=== PATIENT | female | born 1970 | race Caucasian/White ===

== ENCOUNTER 2018-07-11 14:27 | Inpatient (IN) ==
[2018-07-11] MEDS ORDERED: MAGNESIUM SULF RIDER 2 GM in PREMIX 1 EACH IV STA (14:52)
[2018-07-11] MEDS ORDERED: DILTIAZEM 50 MG/10 ML VIAL IV STA ×2 (14:52→15:28)
[2018-07-11] MEDS ORDERED: DILTIAZEM 25 MG/5 ML VIAL IV STA (14:54)
[2018-07-11] MEDS: dilTIAZem Drip 125 MG/125 ML PREMIX IV SCH ×2 (15:05→21:05)
[2018-07-11 15:14] LABS: Basophils % 0.2 % (0.0-0.8); Hemoglobin 12.8 GM/DL (12.0-16.0); Immature Granulocytes % 0.4 %; Immature Granulocytes Absolute 0.06 #; Lymphocytes # 2.6 10*3/uL (1.4-4.0); Lymphocytes % 17.7 % (21.3-54.2); Mean Corpuscular HGB Conc 32.8 GM/DL (32-36); Mean Corpuscular Hemoglobin 28 PG (27-34); Mean Corpuscular Volume 84.1 FL (87-102); Mean Platelet Volume 9.4 FL (9.6-12.0); Monocytes # 0.6 10*3/uL (0.11-0.8); Monocytes % 4.2 % (1.7-12.7); Neutrophils # 11.2 10*3/uL (1.4-7.4); Neutrophils % 77.5 % (38.7-73.9); Platelet Count 535 T/CUMM (130-400); Red Blood Count 4.64 MC/CUMM (3.8-5.5); Red Cell Distribution Width 14.6 % (9.3-17.3); White Blood Count 14.5 T/CUMM (4-12)
[2018-07-11 15:24] LABS: INR 0.9; PT Patient Result 9.9 SECS; Partial Thromboplastin Time 27.7 SECS (0-40)
[2018-07-11 15:37] LABS: Alanine Aminotransferase 20 U/L (13-56); Albumin 3.6 G/DL (3.4-5.0); Alkaline Phosphatase 141 U/L (45-117); Aspartate Amino Transferase 37 U/L (0-37); Bilirubin,Total < 0.39 MG/DL (0.2-1.0); Blood Urea Nitrogen 14 MG/DL (7-18); Calcium 9.2 MG/DL (8.5-10.1); Glucose 136 MG/DL (74-106); Osmolality,Calculated 272.1 MOS/KG (273-304); Sodium 135 MMOL/L (136-145); Thyroid Stimulating Hormone 0.945 uIU/ml (0.358-3.74); Total Protein 8.1 G/DL (6.4-8.3)
[2018-07-11] MEDS ORDERED: ZALEPLON 5 MG CAPSULE PO PRN (15:38)
[2018-07-11] MEDS ORDERED: DOCUSATE SODIUM 100 MG CAPSULE PO PRN (15:38)
[2018-07-11] MEDS ORDERED: ACETAMINOPHEN 325 MG TABLET PO PRN (15:38)
[2018-07-11] MEDS ORDERED: ONDANSETRON 4 MG/2 ML VIAL IV PRN (15:38)
[2018-07-11] MEDS ORDERED: diphenhydrAMINE CAP 25 MG CAPSULE PO PRN (15:38)
[2018-07-11] MEDS ORDERED: guaiFENesin/DM ER 600-30 MG TABLET PO PRN (15:38)
[2018-07-11] MEDS ORDERED: BISACODYL 5 MG TABLET PO PRN (15:38)
[2018-07-11] MEDS ORDERED: MAGNESIUM SULF RIDER 2 GM in PREMIX 1 EACH IV PRN (15:38)
[2018-07-11] MEDS ORDERED: MAGNESIUM SULF RIDER 4 GM in PREMIX 1 EACH IV PRN (15:38)
[2018-07-11] MEDS ORDERED: PROMETHAZINE 25 MG TABLET PO PRN (15:38)
[2018-07-11 16:16] LABS: Apearance,Urine CLEAR (Clear); Barbiturates Screen,Urine Negative (Negative); Benzodiazepines Screen,Urine Negative (Negative); Bilirubin,Urine Negative (Negative); Blood, Urine Small mg/dL (Negative); Cannabinoid Screen,Urine Negative (Negative); Glucose,Urine (UA) Negative (Negative); Ketones,Urine Negative (Negative); Mucus,Urine Occasional /LPF (Occasional); Nitrite,Urine Negative (Negative); Opiate Screen,Urine Negative (Negative); Phencyclidine Screen,Urine Negative (Negative); Protein,Urine Negative; RBC,Urine 1 /HPF (0-4); Squamous Epithelial Cell,Urine Occasional /HPF (0-10); Urine Color Yellow (Yellow); Urine Specific Gravity 1.009 (1.001-1.035); Urine Urobilinogen < 2.0 EU/DL (0.2-1.0); WBC,Urine <1 /HPF (0-6)
[2018-07-11] MEDS: SODIUM CHLORIDE 0.9% 1,000 ML IV SCH (17:08)
[2018-07-11] MEDS ORDERED: SODIUM CHLORIDE 0.9% 500 ML IV STA (17:20)
[2018-07-11] MEDS ORDERED: METOPROLOL TARTRATE 50 MG TABLET PO ONE (17:47)
[2018-07-11] MEDS ORDERED: LOSARTAN 25 MG TABLET PO SCH (21:00)
[2018-07-11] MEDS: ENOXAPARIN 100 MG/ML SYRINGE SUBCUT SCH (22:20)
[2018-07-11] MEDS: POTASSIUM CHLORIDE 20 MEQ TABLET PO PRN (22:20)
[2018-07-11 23:28] LABS: Apearance,Urine Slightly Hazy (Clear); Bilirubin,Urine Negative (Negative); Blood, Urine Small mg/dL (Negative); Glucose,Urine (UA) Negative (Negative); Hyaline Casts,Urine 1 /LPF (0-3); Ketones,Urine Negative (Negative); Mucus,Urine Occasional /LPF (Occasional); Nitrite,Urine Negative (Negative); Protein,Urine Negative; RBC,Urine 1 /HPF (0-4); Squamous Epithelial Cell,Urine Occasional /HPF (0-10); Urine Color Yellow (Yellow); Urine Specific Gravity 1.015 (1.001-1.035); Urine Urobilinogen < 2.0 EU/DL (0.2-1.0); WBC,Urine 1 /HPF (0-6)
[2018-07-12] MEDS: POTASSIUM CHLORIDE 20 MEQ TABLET PO PRN ×3 (00:20→21:36)
[2018-07-12 04:46] LABS: Basophils % 0.2 % (0.0-0.8); Eosinophils # 0.1 10*3/uL (0.0-0.87); Eosinophils % 0.5 % (0.00-10.9); Hematocrit 32.2 VOL% (35.7-47.0); Immature Granulocytes % 0.5 %; Immature Granulocytes Absolute 0.08 #; Lymphocytes # 5.6 10*3/uL (1.4-4.0); Lymphocytes % 37.2 % (21.3-54.2); Mean Corpuscular HGB Conc 32.6 GM/DL (32-36); Mean Corpuscular Hemoglobin 28 PG (27-34); Mean Corpuscular Volume 84.7 FL (87-102); Mean Platelet Volume 9.9 FL (9.6-12.0); Monocytes # 0.9 10*3/uL (0.11-0.8); Monocytes % 5.7 % (1.7-12.7); Neutrophils # 8.4 10*3/uL (1.4-7.4); Neutrophils % 55.9 % (38.7-73.9)
[2018-07-12] MEDS: dilTIAZem Drip 125 MG/125 ML PREMIX IV SCH (05:08)
[2018-07-12 05:13] LABS: Hemoglobin 10.5 GM/DL (12.0-16.0); Platelet Count 423 T/CUMM (130-400)
[2018-07-12 05:21] LABS: Calcium 7.9 MG/DL (8.5-10.1); Osmolality,Calculated 273.7 MOS/KG (273-304); Potassium 3.6 MMOL/L (3.5-5.1)
[2018-07-12] MEDS: SODIUM CHLORIDE 0.9% 1,000 ML IV SCH (06:30)
[2018-07-12] MEDS ORDERED: NORGESTIMATE ETHINYL ESTRADIOL PO SCH (09:00)
[2018-07-12] MEDS ORDERED: METOPROLOL SUCCINATE XL 50 MG TABLET PO SCH (09:00)
[2018-07-12] MEDS ORDERED: CLOPIDOGREL 75 MG TABLET PO SCH (09:00)
[2018-07-12] MEDS: SOTALOL 80 MG TABLET PO SCH ×2 (10:26→21:36)
[2018-07-12] MEDS ORDERED: PROPOFOL 200 MG/20 ML VIAL IV ONE (11:18)
[2018-07-12] MEDS ORDERED: SODIUM CHLORIDE 0.45% 1,000 ML IV SCH (12:00)
[2018-07-12] MEDS: POTASSIUM CHLORIDE 20 MEQ TABLET PO SCH (13:42)
[2018-07-12] MEDS: MONTELUKAST 10 MG TABLET PO SCH (13:43)
[2018-07-12] MEDS: PANTOPRAZOLE 40 MG TABLET PO SCH (13:44)
[2018-07-12] MEDS: ENOXAPARIN 100 MG/ML SYRINGE SUBCUT SCH (13:44)
[2018-07-12] MEDS: APIXABAN 5 MG TABLET PO SCH (21:36)
[2018-07-13 04:33] LABS: Basophils # 0.1 10*3/uL (0.0-0.2); Basophils % 0.5 % (0.0-0.8); Eosinophils # 0.2 10*3/uL (0.0-0.87); Eosinophils % 1.6 % (0.00-10.9); Hematocrit 33.8 VOL% (35.7-47.0); Hemoglobin 10.9 GM/DL (12.0-16.0); Immature Granulocytes % 0.3 %; Immature Granulocytes Absolute 0.04 #; Lymphocytes # 4.9 10*3/uL (1.4-4.0); Lymphocytes % 40.9 % (21.3-54.2); Mean Corpuscular HGB Conc 32.2 GM/DL (32-36); Mean Corpuscular Hemoglobin 28 PG (27-34); Mean Corpuscular Volume 85.8 FL (87-102); Mean Platelet Volume 9.5 FL (9.6-12.0); Monocytes # 0.9 10*3/uL (0.11-0.8); Monocytes % 7.2 % (1.7-12.7); Neutrophils # 5.9 10*3/uL (1.4-7.4); Neutrophils % 49.5 % (38.7-73.9); Platelet Count 441 T/CUMM (130-400); Red Blood Count 3.94 MC/CUMM (3.8-5.5); White Blood Count 11.9 T/CUMM (4-12)
[2018-07-13 04:51] LABS: Calcium 8.2 MG/DL (8.5-10.1); Osmolality,Calculated 277.4 MOS/KG (273-304); Potassium 3.9 MMOL/L (3.5-5.1)
[2018-07-13] MEDS: MONTELUKAST 10 MG TABLET PO SCH (08:24)
[2018-07-13] MEDS: SOTALOL 80 MG TABLET PO SCH (08:24)
[2018-07-13] MEDS: PANTOPRAZOLE 40 MG TABLET PO SCH (08:25)
[2018-07-13] MEDS: POTASSIUM CHLORIDE 20 MEQ TABLET PO SCH (08:25)
[2018-07-13] MEDS: APIXABAN 5 MG TABLET PO SCH (08:25)
[2018-07-13 08:33] VITALS: BP 139/85
== END 2018-07-13 09:53 | disposition home or self-care (01) | DRG 310 ==
LOC: N.ED 14:27 → N.TELEN 14:27
PROVIDERS: ADMIT Internal Medicine Clinical Cardiac Electrophysiology; ATTEND Internal Medicine Clinical Cardiac Electrophysiology